=== PATIENT | female | born 1985 | race Caucasian/White ===

== ENCOUNTER 2016-08-03 16:59 | Emergency (ER) | payer OTHER, SELFPAY ==
[2016-08-03] MEDS ORDERED: Ibuprofen 800 MG TAB ONE (17:39)
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
--- NOTE | 2016-08-03 20:04 | RAD ---
RIGHT SHOULDER THREE VIEWS 08/03/16 No fracture or AC joint widening was seen. There is no dislocation. All bones appeared intact. IMPRESSION: No acute findings. POS: HOME
--- NOTE | 2016-08-03 20:38 | RAD ---
CERVICAL SPINE THREE VIEWS 08/03/16 No fracture, dislocation or soft tissue swelling is seen. The C1 to dens distance is normal. There i s some mild reversal of lordosis in the lower cervical region which could be due to muscle spasm. IMPRESSION: Mild straightening of the cervical spine. Exam otherwise shows no acute findings. POS: HOME
== END 2016-08-03 17:42 | disposition home or self-care (01) ==
LOC: BURERS 16:59
DX: S46.911A Strain of unspecified muscle, fascia and tendon at shoulder and upper arm level, right arm, initial encounter (principal); M62.830 Muscle spasm of back; Z79.899 Other long term (current) drug therapy; F41.9 Anxiety disorder, unspecified; G43.909 Migraine, unspecified, not intractable, without status migrainosus; F32.9 Major depressive disorder, single episode, unspecified; X58.XXXA Exposure to other specified factors, initial encounter
CPT/HCPCS: 72040; 99283